=== PATIENT | male | born 1930 | race Caucasian/White ===

== ENCOUNTER 2018-03-22 08:23 | Inpatient (IN) ==
[2018-03-13 14:32] LABS: Appearance,Urine CLEAR; Bacteria,Urine 0 /hpf (0); Bilirubin,Urine NEG (NEG); Color,Urine YELLOW; Glucose,Urine (UA) NEGATIVE (NEG); Leukocyte Esterase,Urine NEG /uL (NEG); Mucus,Urine FEW /hpf (0); Protein,Urine 30 mg/dL (NEG); Specific Gravity,Urine 1.018 (1.000-1.035); Urine Blood NEG mg/dL (<0.03); Urine RBC 1 /hpf (0-1); Urine Squamous Epithelial Cell < 1 /hpf (0-4); Urine WBC 2 /hpf (0-4); Urobilinogen,Urine NEG (NEG)
[2018-03-13 17:28] LABS: Blood Urea Nitrogen 23 mg/dl (8-23)
[2018-03-13 17:34] LABS: Basophils # (Auto) 0.1 K/mcL (0.0-0.3); Basophils % (Auto) 0.8 % (0.0-2.0); Eosinophils # (Auto) 0.3 K/mcL (0.0-0.7); Eosinophils % (Auto) 3.8 % (0.0-7.0); Granulocytes % (Auto) 64.4 % (38.0-78.0); Lymphocytes # (Auto) 1.9 K/mcL (1.5-4.8); Lymphocytes % (Auto) 21.9 % (15.5-49.0); Mean Cell Volume 90.1 fL (80.0-100.0); Mean Corpuscular HGB Conc 32.9 g/dL (31.0-36.0); Mean Corpuscular Hemoglobin 29.6 pg (26.0-34.0); Monocytes # (Auto) 0.8 K/mcL (0.1-0.9); Monocytes % (Auto) 9.1 % (1.0-12.0); Platelet Count 270 K/mcL (140-440); RBC 4.32 M/mcL (4.50-5.90); Red Cell Distribution Width 13.9 % (11.5-14.5)
[~2018-03-22 08:23] MED LIST: ACETAMINOPHEN 500 MG TABLET PO SCH; CELECOXIB 200 MG CAPSULE PO SCH; PREGABALIN 75 MG CAPSULE PO SCH; ceFAZolin 1 GM VIAL IV SCH; oxyCODONE 10 MG TAB.ER.12H PO SCH
[2018-03-22] MEDS ORDERED: IPRATROPIUM/ALBUTEROL 3 ML AMPUL.NEB NEB ONE (12:25)
[2018-03-22] MEDS ORDERED: FLEETS ADULT ENEMA PR PRN (12:28)
[2018-03-22] MEDS ORDERED: BISACODYL 10 MG SUPP.RECT PR PRN (12:28)
[2018-03-22] MEDS ORDERED: TEMAZEPAM 15 MG CAPSULE PO PRN (12:28)
[2018-03-22] MEDS ORDERED: HYDROmorphone 2 MG/ML VIAL IV PRN ×2 (12:28→13:33)
[2018-03-22] MEDS ORDERED: BENZOCAINE/MENTHOL 1 LOZENGE PO PRN (12:28)
[2018-03-22] MEDS ORDERED: TRANEXAMIC ACID 1,000 MG/10 ML VIAL IV ONE ×2 (12:28→12:30)
[2018-03-22] MEDS ORDERED: MAGNESIUM HYDROXIDE 30 ML ORAL.SUSP PO PRN (12:28)
[2018-03-22] MEDS ORDERED: POLYETHYLENE GLYCOL 3350 17 GM PACKET PO PRN (12:28)
[2018-03-22] MEDS ORDERED: ONDANSETRON 4 MG/2 ML VIAL IV PRN ×2 (12:28→13:33)
--- NOTE | 2018-03-22 12:28 | Brief Operative Note ---
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
[2018-03-22] MEDS ORDERED: HETASTARCH 6% 500 ML BAG IV ONE (12:30)
[2018-03-22] MEDS ORDERED: MIDAZOLAM 2 MG/2 ML VIAL IV ONE (12:30)
[2018-03-22] MEDS ORDERED: ROPIVACAINE HCL/PF 30 ML VIAL IJ ONE (12:30)
[2018-03-22] MEDS ORDERED: LIDOCAINE HCL/PF 100 MG/5 ML SYRINGE IV ONE (12:30)
[2018-03-22] MEDS ORDERED: DEXAMETHASONE 10 MG/ML VIAL IV ONE (12:30)
[2018-03-22] MEDS ORDERED: PROPOFOL 200 MG/20 ML VIAL IV ONE (12:30)
[2018-03-22] MEDS ORDERED: ONDANSETRON 4 MG/2 ML VIAL IV ONE (12:30)
[2018-03-22] MEDS ORDERED: SUCCINYLCHOLINE 20 MG/ML ML IV ONE (12:30)
[2018-03-22] MEDS ORDERED: GLYCOPYRROLATE 0.2 MG/ML VIAL IV ONE (12:30)
[2018-03-22] MEDS ORDERED: fentaNYL 250 MCG/5 ML VIAL IV ONE (12:30)
[2018-03-22] MEDS ORDERED: METOPROLOL TARTRATE 5 MG/5 ML VIAL IV PRN (13:33)
[2018-03-22] MEDS ORDERED: IPRATROPIUM/ALBUTEROL 3 ML AMPUL.NEB NEB PRN (13:33)
[2018-03-22] MEDS ORDERED: NALOXONE HCL 0.4 MG/ML VIAL IV PRN (13:33)
[2018-03-22] MEDS ORDERED: PROMETHAZINE 25 MG/ML VIAL IV PRN (13:33)
[2018-03-22] MEDS ORDERED: FLUMAZENIL 0.1 MG/ML ML IV PRN (13:33)
[2018-03-22] MEDS ORDERED: MEPERIDINE 25 MG/ML SYRINGE IV PRN (13:33)
[2018-03-22] MEDS ORDERED: diphenhydrAMINE 50 MG/ML VIAL IV PRN (13:33)
[2018-03-22] MEDS ORDERED: ePHEDrine 50 MG/ML AMPUL IV PRN (13:33)
[2018-03-22] MEDS ORDERED: METHOCARBAMOL 1,000 MG/10 ML VIAL IV PRN (13:33)
[2018-03-22] MEDS ORDERED: fentaNYL 100 MCG/2 ML VIAL IV PRN (13:33)
[2018-03-22] MEDS ORDERED: ATROPINE SULFATE 0.4 MG/ML VIAL IV PRN (13:33)
[2018-03-22] MEDS ORDERED: TRIAMCINOLONE ACETONIDE 40 MG/ML VIAL IM ONE (13:41)
[2018-03-22] MEDS ORDERED: BUPIVACAINE 0.5% 50 ML VIAL IJ ONE (13:41)
[2018-03-22] MEDS ORDERED: DEXAMETHASONE 10 MG/ML VIAL IJ ONE (13:43)
[2018-03-22] MEDS ORDERED: LACTATED RINGERS 1,000 ML IV SCH (13:45)
--- NOTE | 2018-03-22 14:27 | Operative Note ---
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 PROCEDURE: Left reverse total shoulder with biceps tenodesis using Stephen components. SURGEON: Jaime Hilario MD SUBSTATION OPERATOR HELPER: Florencio Bermudez PA-C ANESTHESIA: General LMA anesthesia. COMPLICATIONS: None. FINDINGS: We found severe arthritis of the glenohumeral joint, which was very severe, with a tear of his supraspinatus as well as biceps tendinopathy. DESCRIPTION OF PROCEDURE: The patient was brought to the operating room and put to sleep with general LMA anesthesia. Once asleep, the patient had the left arm sterilely prepped and draped in the usual sterile fashion. An incision was made over the deltopectoral region after being sterilely prepped and draped and a timeout performed. Preop antibiotics had been given and tranexamic acid had been given. Ioban had been placed over the skin and a deltopectoral approach made. This incision was 4 inches long from the coracoid to about the insertion of the deltoid. This dissection went through the deltopectoral interval and the deltoid retracted laterally. I then retracted the conjoint tendon medially and released the subscap. Once this was done, we then identified the biceps tendon and this was released from its remnants and tenodesis was performed to the pec major and the bicipital groove, roughening the surface. We irrigated thoroughly and then the shoulder itself, the humeral head, was dislocated anteriorly. We released the capsule inferiorly using bipolar cautery to protect his pacemaker. We irrigated thoroughly and then made our cut at 20 degrees of retroversion on the humeral head. We then placed a protective plate on the humeral head and subluxed it posteriorly. I performed a 360 degree capsular release and released the remnants of the biceps tendon intraarticularly. The dissection was carried down to the inferior portion of the glenoid rim and then we placed a pin centrally in the glenoid at 10 degrees of inclination. Once done, we then reamed up to the size 40 and then after getting the bleeding bone up to about the middle portion of the hole that we had made. We then placed a metaglene. The metaglene was placed with a central screw of 32 mm and then a 36 and 32 and 20 mm locking screw were placed around the peripheral holes to lock these into place. Once done, we then tightened these into place and a 36 mm head with 2 mm of offset and 2 mm of eccentricity was tapped into place, keeping the inferior portion as the eccentric portion to match the bony anatomy. We irrigated thoroughly and then prepared the humerus. The humerus was then broached up to the size 13 stem. We trialed the 13 with a standard thickness poly. This fit extremely well, a little bit tight. We did trim some more bone to make it perfectly tight after a couple trials. After feeling comfortable with the position and the tightness, we then put into place the 13 cementless stem, distally placing a small amount of cement to fix this immediately. We tapped it into place with a standard thickness poly. It perfectly matched the cut on the neck. We irrigated thoroughly and then reduced the head to the glenosphere. This seemed to match perfectly and he had full range of motion. We irrigated thoroughly and then repaired the interval with 2-0 Vicryl; 3-0 Monocryl was used in the skin and adhesive closure and 2-0 Vicryl in the skin. This closed very nicely. A sterile bandage was applied and A DonJoy sling was fitted and given to the patient. RBH:tyler Job ID: [id number] Doc ID: [id number] Jaime Hilario MD
--- NOTE | 2018-03-22 14:52 | XRay Report ---
HISTORY: Postop shoulder replacement FINDINGS: There is a well-positioned left total shoulder prosthesis. There is no fracture or abnormal soft tissue calcification. 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 IMPRESSION: Well-positioned left shoulder prosthesis Interpreted and Authenticated by: Rick Benedict 03/22/18
[2018-03-22] MEDS: 0.9 % SODIUM CHLORIDE 10 ML SYRINGE IV SCH ×2 (15:11→20:03)
[2018-03-22] MEDS: 0.45 % SODIUM CHLORIDE 1,000 ML IV SCH ×2 (15:11→21:00)
--- NOTE | 2018-03-22 16:23 | Discharge Summary ---
Ortho Discharge - TSA - Patient Instructions Diet: Regular Diet Activity: activity as tolerated, weight bearing as tolerated Total Shoulder Protocol: Leave immobilizer in place except for bathing and ROM. Abduction pillow. Continue to wear sling until seen by physician. Codman Pendulum : These exercises use momentum produced by your body to move your shoulder joint. Bend your knees and shift your weight to your front leg, then back, allowing your arm to swing in the same directions. Using the same technique, alternately shift your weight between your right and left legs, allowing your arm to swing from side to side. These exercises are also performed in counterclockwise and clockwise circular motions. Typically these exercises are performed several times per day, for a set number repetitions or minutes, such as 20 times in a row or 5 minutes at a time. Dressing Care: May shower in 2 days - Follow Up Plan Follow Up Appointments: Florencio Bermudez PA-C [Physician [employer] [facility]] - 04/04/18 11:20 am Disposition: Home, Self-Care Prognosis: Good Rehab Potential: Good I certify that the patient requires SNF services: No Overall status at discharge: patient is progressing back to baseline - Orders For Discharge Prescriptions: Docusate Sodium [Colace] 100 mg PO BID #60 cap
[2018-03-22] MEDS: DOCUSATE SODIUM 100 MG CAPSULE PO SCH (20:01)
[2018-03-22] MEDS: METOPROLOL TARTRATE 25 MG TABLET PO SCH (20:01)
[2018-03-22] MEDS: ceFAZolin 1 GM VIAL IV SCH (20:02)
[2018-03-22] MEDS ORDERED: SENNOSIDES 1 TABLET PO SCH (21:00)
[2018-03-22] MEDS: ACETAMINOPHEN 325 MG TABLET PO PRN (23:42)
[2018-03-22] MEDS: KETOROLAC 15 MG/ML VIAL IV PRN (23:42)
[2018-03-23] MEDS: ceFAZolin 1 GM VIAL IV SCH (04:40)
[2018-03-23] MEDS: 0.9 % SODIUM CHLORIDE 10 ML SYRINGE IV SCH (04:40)
[2018-03-23] MEDS: KETOROLAC 15 MG/ML VIAL IV PRN (06:29)
[2018-03-23] MEDS: ACETAMINOPHEN 325 MG TABLET PO PRN (06:31)
[2018-03-23] MEDS: METOPROLOL TARTRATE 25 MG TABLET PO SCH (08:49)
[2018-03-23] MEDS: DOCUSATE SODIUM 100 MG CAPSULE PO SCH ×2 (08:49→08:54)
[2018-03-23] MEDS: 0.45 % SODIUM CHLORIDE 1,000 ML IV SCH (08:50)
[2018-03-23] MEDS ORDERED: LISINOPRIL 20 MG TABLET PO SCH (09:00)
[2018-03-23] MEDS ORDERED: GLUCOSAMINE SULFATE DIPOT CHLR PO SCH (09:00)
[2018-03-23] MEDS ORDERED: [UNRECOGNIZED DRUG - OTHER] PO SCH (09:00)
[2018-03-24] MEDS ORDERED: APIXABAN 5 MG TABLET PO SCH (09:00)
== END 2018-03-23 12:45 | disposition home or self-care (01) | DRG 483 ==
LOC: MEDSUR 08:23
PROVIDERS: ADMIT Orthopaedic Surgery; ATTEND Orthopaedic Surgery
CPT/HCPCS: 97161